=== PATIENT | female | born 1975 | race Caucasian/White ===

== ENCOUNTER 2019-11-01 05:04 | Inpatient (IN) | payer OTHER ==
[2019-11-01 05:15] VITALS: BMI 22.7
[2019-11-01] MEDS ORDERED: morphine CARPU-JECT 2 MG/1 ML DISP.SYRIN IVPUSH ONE (05:41)
[2019-11-01] MEDS ORDERED: SODIUM CHLORIDE 0.9% 500 ML INFUS.BAG IV ONE (05:42)
--- NOTE | 2019-11-01 05:42 | PDOC ---
Attending Attestation - Resident Resident Name: Elia Duarte - ED Attending Attestation I have performed the following: I have examined & evaluated the patient, The case was reviewed & discussed with the resident, I agree w/resident's findings & plan - HPI HPI: 11/01/19 06:54 Pt comes with abdominal pain pt is worried that "my appendix has ruptured." Patient reports waking up at 2: 05 AM in extreme pain. + diarrhea 3x yesterday. One episode of clear water NBNB spit up here in the department. Reports taking Motrin at 2:05 when she woke up and it did not help. - Physicial Exam PE: 11/06/19 06:44 Vitals reviewed, AFVSS GEN: Appears stated age, uncomfortable, writhing around in bed. AAOx3. HEENT: NCAT, EOMI, PERRL. Sclera anicteric, noninjected. No facial asymmetry. Moist mucous membranes. Normal voice. Trachea midline. CV: RRR, S1/S2, no murmurs / rubs / gallops appreciated. LUNG: CTAB, normal work of breathing. No wheezes, rales, rhonchi. No cough. Speaking full sentences. GI: Soft, TTP RLQ, non-distended, +BS, +guarding, no rebound. No masses. EXTREMITIES: 2+ distal pulses. No LE edema. No obvious deformities of all extremities. SKIN: Warm, dry, no rashes appreciated, non-jaundiced. PSYCH: In pain NEURO: CN grossly intact. Moving all extremities well. Normal strength and sensation grossly. - Medical Decision Making 11/06/19 06:44 Signed out to the day team
--- NOTE | 2019-11-01 05:42 | PDOC ---
History of Present Illness - General Chief Complaint: Pain, Acute Stated Complaint: ABDOMINAL PAIN Time Seen by Provider: 11/01/19 05:41 History Source: Patient Exam Limitations: No Limitations, Clinical Condition - History of Present Illness Initial Comments: 11/01/19 05:41 Source: Patient, writhing in pain HPI: 43yo F pmh MS, presenting with "my appendix has ruptured." Patient reports waking up at 2:05 AM in extreme 20/10 pain, she cannot describe it aside from "way worse than child ," states that she feels that her internal organs are being torn to shreds. She denies associated symptoms initially then endorses diarrhea 3x yesterday. One episode of clear water NBNB spit up here in the department. Reports taking Motrin at 2:05 when she woke up and it did not help. Denies any new or different foods. Endorses distention. Continued pain medication throughout encounter, s/p 2 mg morphine. Denies any illicit drug use. States that the pain radiates from her RLQ to her belly button. Prior abdominal surgery notable for , no other surgeries, still has GB and appendix. Levasy mildly off yesterday but no specific symptoms. All: Denies Meds: Per chart PMH: As above PSH: Per chart SHx: Denies Past History - Travel Traveled outside of the country in the last 30 days: No Close contact w/someone who was outside of country & ill: No - Past Medical History Allergies/Adverse Reactions: Allergies Allergy/AdvReac Type Severity Reaction Status Date / Time No Known Allergies Allergy Verified 11/01/19 12:55 Home Medications: Ambulatory Orders NK [No Known Home Medication] 09/23/16 Asthma: No Cardiac Disorders: No COPD: No Diabetes: No GI Disorders: No Disorders: No HTN: No Kidney Stones: No Seizures: No - Surgical History Abdominal Surgery: No Appendectomy: No Cardiac Surgery: No Cholecystectomy: No Lung Surgery: No Neurologic Surgery: No Orthopedic Surgery: No - Reproductive History PID: No - Psycho Social/Smoking Cessation Hx Smoking History: Never smoked Have you smoked in the past 12 months: No Number of Cigarettes Smoked Daily: 20 Information on smoking cessation initiated: No 'Breaking Loose' booklet given: 09/23/16 Hx Alcohol Use: No Drug/Substance Use Hx: No Hx Substance Use Treatment: No Review of Systems - Review of Systems Able to Perform ROS?: No (limited by condition) Is the patient limited Bur[place]ian proficient: Yes *Physical Exam - Vital Signs Last Vital Signs Temp Pulse Resp BP Pulse Ox 98.2 F 82 20 136/80 100 11/01/19 05:12 11/01/19 05:12 11/01/19 05:12 11/01/19 05:12 11/01/19 05:12 - Physical Exam 11/01/19 05:48 Vitals reviewed, AFVSS GEN: Appears stated age, uncomfortable, writhing around in bed. AAOx3. HEENT: NCAT, EOMI, PERRL. Sclera anicteric, noninjected. No facial asymmetry. Moist mucous membranes. Normal voice. Trachea midline. CV: RRR, S1/S2, no murmurs / rubs / gallops appreciated. LUNG: CTAB, normal work of breathing. No wheezes, rales, rhonchi. No cough. Speaking full sentences. GI: Soft, TTP RLQ, non-distended, +BS, +guarding, no rebound. No masses. EXTREMITIES: 2+ distal pulses. No LE edema. No obvious deformities of all extremities. SKIN: Warm, dry, no rashes appreciated, non-jaundiced. PSYCH: In pain NEURO: CN grossly intact. Moving all extremities well. Normal strength and sensation grossly. ED Treatment Course - LABORATORY CBC & Chemistry Diagram: 11/01/19 06:25 11/01/19 08:20 Medical Decision Making - Medical Decision Making 11/01/19 06:45 43yo F pmh MS presenting with "my appendix has ruptured." Abdomen diffusely TTP , non-peritoneal, vitals stable. DDX: Appendicitis, Torsion, TOA, Ectopic, UTI, Kidney Stone. - CBC, CMP, Lactate, Coags - UA, UCx - EKG - 2 mg Morphine - Zofran - 1 g Ofirmev - 1 L IVF - Discussed with day team Dr. Grier - ANGELICA with contrast Discharge - Discharge Information Problems reviewed: Yes Clinical Impression/Diagnosis: Appendicitis Qualifiers: Appendicitis type: acute appendicitis Acute appendicitis type: with localized peritonitis Appendicitis gangrene presence: without gangrene Appendicitis perforation presence: without perforation Appendicitis abscess presence: without abscess Qualified Code(s): K35.30 - Acute appendicitis with localized peritonitis, without perforation or gangrene Condition: Stable - Follow up/Referral - Patient Discharge Instructions - Post Discharge Activity
[2019-11-01] MEDS ORDERED: MORPHINE SULFATE 2 MG/ML VIAL ONE ×2 (05:47→09:50)
[2019-11-01] MEDS ORDERED: ONDANSETRON 4 MG/2 ML VIAL ONE ×2 (06:14→18:30)
[2019-11-01] MEDS ORDERED: ACETAMINOPHEN 1000 MG/100 ML VIAL (NON FORMULARY) IVPB ONE ×3 (06:31→19:00)
[2019-11-01] MEDS ORDERED: ACETAMINOPHEN INJECTION 100 ML IVPB ONE ×2 (06:34→19:11)
[2019-11-01 07:06] LABS: HEMATOCRIT 36.5 % (32.4-45.2); HEMOGLOBIN 12.2 GM/dL (10.7-15.3); MCHC 33.3 g/dl (32.0-36.0); MEAN PLT VOLUME 10.2 fl (7.5-11.1); PLATELET COUNT 258 K/MM3 (134-434); RBC 3.58 M/mm3 (3.60-5.2); RDW 15.3 % (11.6-15.6); WHITE BLOOD COUNT 3.2 K/mm3 (4.0-10.0)
[2019-11-01] MEDS ORDERED: morphine CARPU-JECT 4 MG/1 ML DISP.SYRIN IVPUSH ONE (07:53)
--- NOTE | 2019-11-01 09:31 | PDOC ---
*Physical Exam - Vital Signs Last Vital Signs Temp Pulse Resp BP Pulse Ox 98.2 F 82 20 136/80 100 11/01/19 05:12 11/01/19 05:12 11/01/19 05:12 11/01/19 05:12 11/01/19 05:12 ED Treatment Course - LABORATORY CBC & Chemistry Diagram: 11/01/19 06:25 11/01/19 08:20 - ADDITIONAL ORDERS Additional order review: Laboratory Results 11/01/19 06:25 Sodium Cancelled Potassium Cancelled Chloride Cancelled Carbon Dioxide Cancelled Anion Gap Cancelled BUN Cancelled Creatinine Cancelled Est GFR (CKD-EPI)AfAm Cancelled Est GFR (CKD-EPI)NonAf Cancelled Random Glucose Cancelled Calcium Cancelled Total Bilirubin Cancelled AST Cancelled ALT Cancelled Alkaline Phosphatase Cancelled Total Protein Cancelled Albumin Cancelled 11/01/19 06:25 RBC 3.58 L MCV 102.0 H MCHC 33.3 RDW 15.3 MPV 10.2 Neutrophils % No Result Required. Lymphocytes % No Result Required. - Medications Given in the ED: ED Medications Discontinued Medications Generic Name Dose Route Start Last Admin Trade Name Freq PRN Reason Stop Dose Admin Acetaminophen 1,000 mg 11/01/19 06:31 11/01/19 06:53 Ofirmev Injection - IVPB 11/01/19 06:32 1,000 mg ONCE ONE Administration Morphine Sulfate 2 mg 11/01/19 05:41 11/01/19 06:52 Morphine Injection - IVPUSH 11/01/19 05:42 2 mg ONCE ONE Administration Sodium Chloride 1,000 ml 11/01/19 05:42 11/01/19 06:52 Normal Saline - IV 11/01/19 05:43 1,000 ml ONCE ONE Administration Medical Decision Making - Medical Decision Making 11/01/19 09:31 Patient signed out to me with abdominal pain pending labs and CAT scan IV pain medication given CT demonstrates appendicitis IV antibiotics ordered IV fluids ordered patient made n.p.o. We will admit to Dr. Aguilar surgery for definitive management of appendicitis. Discharge - Discharge Information Problems reviewed: Yes Clinical Impression/Diagnosis: Appendicitis Qualifiers: Appendicitis type: acute appendicitis Acute appendicitis type: with localized peritonitis Appendicitis gangrene presence: without gangrene Appendicitis perforation presence: without perforation Appendicitis abscess presence: without abscess Qualified Code(s): K35.30 - Acute appendicitis with localized peritonitis, without perforation or gangrene Condition: Stable - Admission Yes - Follow up/Referral - Patient Discharge Instructions - Post Discharge Activity
--- NOTE | 2019-11-01 09:38 | PDOC ---
*Physical Exam - Vital Signs Last Vital Signs Temp Pulse Resp BP Pulse Ox 98.2 F 82 20 136/80 100 11/01/19 05:12 11/01/19 05:12 11/01/19 05:12 11/01/19 05:12 11/01/19 05:12 ED Treatment Course - LABORATORY CBC & Chemistry Diagram: 11/01/19 06:25 11/01/19 08:20 - ADDITIONAL ORDERS Additional order review: Laboratory Results 11/01/19 06:25 Sodium Cancelled Potassium Cancelled Chloride Cancelled Carbon Dioxide Cancelled Anion Gap Cancelled BUN Cancelled Creatinine Cancelled Est GFR (CKD-EPI)AfAm Cancelled Est GFR (CKD-EPI)NonAf Cancelled Random Glucose Cancelled Calcium Cancelled Total Bilirubin Cancelled AST Cancelled ALT Cancelled Alkaline Phosphatase Cancelled Total Protein Cancelled Albumin Cancelled 11/01/19 06:25 RBC 3.58 L MCV 102.0 H MCHC 33.3 RDW 15.3 MPV 10.2 Neutrophils % No Result Required. Lymphocytes % No Result Required. - RADIOLOGY Radiology Studies Ordered: Category Date Time Status ABDOMEN & PELVIS CT WITH CONTR [CT] Stat CT Scan 11/01/19 07:20 Ordered - Medications Given in the ED: ED Medications Discontinued Medications Generic Name Dose Route Start Last Admin Trade Name Freq PRN Reason Stop Dose Admin Acetaminophen 1,000 mg 11/01/19 06:31 11/01/19 06:53 Ofirmev Injection - IVPB 11/01/19 06:32 1,000 mg ONCE ONE Administration Morphine Sulfate 2 mg 11/01/19 05:41 11/01/19 06:52 Morphine Injection - IVPUSH 11/01/19 05:42 2 mg ONCE ONE Administration Sodium Chloride 1,000 ml 11/01/19 05:42 11/01/19 06:52 Normal Saline - IV 11/01/19 05:43 1,000 ml ONCE ONE Administration Medical Decision Making - Medical Decision Making 11/01/19 09:36 Signout from night team CT A/P showed acute appendicitis (thick walled tubular structure in RLQ w inflammatory changes, appendicolith, trace free fluid) without abscess, distended gallbladder, diffuse fatty liver, hepatomegaly WBC 3.2, K 3.3 --- 43yF w PMHx MS, polysubstance abuse (cocaine, ETOH) presenting with 1d RLQ ABD pain 2/2 acute appendicitis. Low concern for UTI (clean UA) vs kidney stone (no hematuria) vs (neg) vs pancreatitis. Hemodynamically stable Pt does not have any antibiotic allergies. Given 1L NS, 6 morphine, 1 dilaudid, cefoxitin, NS running wide open Consulted Dr Frank surgery - advised run IV fluids, NPO, will evaluate pt for surgery Admitted satellite Dr Frank for appendicitis Pt's sister took pt's identity during past hospital stay. Pt denies recent heroin, cocaine use. Last alcohol use last night. Last oral intake 2am this morning PCP Dr Heriberto Cottrell Discharge - Discharge Information Problems reviewed: Yes Clinical Impression/Diagnosis: Appendicitis Qualifiers: Appendicitis type: acute appendicitis Acute appendicitis type: with localized peritonitis Appendicitis gangrene presence: without gangrene Appendicitis perforation presence: without perforation Appendicitis abscess presence: without abscess Qualified Code(s): K35.30 - Acute appendicitis with localized peritonitis, without perforation or gangrene Condition: Stable - Follow up/Referral - Patient Discharge Instructions - Post Discharge Activity
[2019-11-01 09:44] LABS: URINE APPEARANCE Clear; URINE BILIRUBIN Negative (NEGATIVE); URINE COLOR Yellow; URINE GLUCOSE (UA) Negative (NEGATIVE); URINE KETONE Trace (NEGATIVE); URINE LEUK ESTERASE Negative (NEGATIVE); URINE NITRITE Negative (NEGATIVE); URINE PROTEIN Trace (NEGATIVE); URINE UROBILINOGEN 0.2 mg/dL (0.2-1.0)
[2019-11-01 09:59] LABS: INR 0.97 (0.83-1.09); PROTHROMBIN TIME (PATIENT) 11.4 SEC (9.7-13.0)
[2019-11-01 10:03] LABS: ALBUMIN 3.8 g/dl (3.4-5.0); BILIRUBIN,TOTAL 0.7 mg/dL (0.2-1); BLOOD UREA NITROGEN 12.4 mg/dL (7-18); CALCIUM 9.6 mg/dL (8.5-10.1); CREATININE 0.6 mg/dL (0.55-1.3); POTASSIUM 3.3 mmol/L (3.5-5.1); TOT PROT 6.9 g/dl (6.4-8.2)
[2019-11-01] MEDS ORDERED: CEFOXITIN SODIUM 2 GM in DEXTROSE 5%-WATER - 100 ML IVPB ONE (12:40)
[2019-11-01] MEDS ORDERED: HYDROmorphone HCL CARPU-JECT 2 MG/1 ML DISP.SYRIN IVPUSH ONE (12:49)
[2019-11-01] MEDS ORDERED: SODIUM CHLORIDE 0.9% 1000 ML INFUS.BAG IV ONE (13:03)
[2019-11-01] MEDS ORDERED: SODIUM CHLORIDE 1,000 ML IV SCH (13:30)
[2019-11-01] MEDS ORDERED: LIDOCAINE HCL/PF 2% SDV 5ML VIAL ONE (15:50)
[2019-11-01] MEDS ORDERED: LIDOCAINE HCL 2% JELLY (5 ML/TUBE) ONE (15:50)
[2019-11-01] MEDS ORDERED: GLYCOPYRROLATE 0.2 MG/1 ML VIAL ONE (15:50)
[2019-11-01] MEDS ORDERED: DEXAMETHASONE SOD PHOSPHATE 4 MG/1 ML VIAL ONE (15:50)
[2019-11-01] MEDS ORDERED: fentaNYL CITRATE 250 MCG/5 ML VIAL ONE (15:50)
[2019-11-01] MEDS ORDERED: NEOSTIGMINE METHYLSULFATE 0.5 MG/ML - 10 ML MDV ONE (15:50)
[2019-11-01] MEDS ORDERED: MIDAZOLAM HCL 2 MG/2 ML SINGLE DOSE VIAL ONE (15:51)
[2019-11-01 15:57] LABS: ANISOCYTOSIS 1+; MACROCYTOSIS 0; PLATELET ESTIMATE NORMAL
--- NOTE | 2019-11-01 16:37 | HP ---
Admitting History and Physical - Primary Care Physician PCP: Heriberto Cottrell - Admission Chief Complaint: RLQ pain, N/V, diarrhea History of Present Illness: 43yo F with multiple sclerosis, s/p c/s and TOPs, not on any routine home meds ( stopped MS med about a month ago on her own for n/v), presented to ER with RLQ pain beginning more vaguely last night (thought it might be gas or MS related), but woke her at 2am with severe pain, which then also radiated toward umbilicus , associated with N/V, diarrhea and subjective fever. She has felt a bit dizzy over the last couple days at times, and does have intermittent back/leg pain and weakness related to her MS, but does not use a cane. She tried taking ibuprofen, which did not help, and came to ER. Last po was last night, other than some ice chips in ER. In ER, she was afebrile, with wbc 3.2, left shifted/bandemia and with high eosinophils, and CT showed acute appendicitis with some free fluid but no discrete abscess. She was given pain meds, IV fluids and started on Cefoxitin in the ER. She was admitted satellite to surgery. She is seen and examined in OR holding - still feeling a lot of pain, having some difficulty with deep breathing secondary to it. She c/o dry mouth and difficulty voiding "like something is pressing on my bladder" as well. She does not and has not used cocaine or other illicit substances - her sister used her card last time she was at the hospital. Her sister was on suboxone - she has not taken it. She does not have known allergies to medications. She quit smoking 3 years ago, and drinks socially only. She was adopted and does not know her family history. 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 Psych: Yes: Anxiety Musculoskeletal: Yes: Chronic low back pain (and upper back pain from MS) - Past Surgical History Past Surgical History: Yes: Additional Past Surgical History: and terminations - Smoking History Smoking history: Former smoker (1ppd x 15 y) Have you smoked in the past 12 months: No If you are a former smoker, when did you quit?: 3 yrs ago - Alcohol/Substance Use Hx Alcohol Use: Yes (social) History of Substance Use: reports: None - Social History Usual Living Arrangement: Yes: With Spouse ADL: Independent Home Medications - Allergies Allergies/Adverse Reactions: Allergies Allergy/AdvReac Type Severity Reaction Status Date / Time No Known Allergies Allergy Verified 11/01/19 12:55 - Home Medications Home Medications: Ambulatory Orders NK [No Known Home Medication] 09/23/16 Family Medical History Family History: Unable to Obtain (pt was adopted - 16yo twins healthy) Review of Systems - Review of Systems Constitutional: reports: Fever (subjective). denies: Chills Eyes: denies: Blurred Vision, Recent Change in Vision HENT: denies: Difficult Swallowing, Throat Pain Neck: denies: Swollen Glands, Tenderness Cardiovascular: denies: Chest Pain, Palpitations Respiratory: denies: Cough, SOB Gastrointestinal: reports: Abdominal Pain (with hpi), Diarrhea, Nausea, Vomiting. denies: Constipation Genitourinary: denies: Burning, Dysuria Musculoskeletal: reports: Back Pain (with MS), Extremity Pain (legs, from MS). denies: Muscle Pain Integumentary: denies: Change in Color, Rash Neurological: reports: Dizziness (last few days), Unsteady Gait (at times, with MS, does not use aid). denies: Headache Psychiatric: reports: Anxiety. denies: Depression Physical Examination Vital Signs: Vital Signs Temperature 98.2 F 11/01/19 05:12 Pulse Rate 104 H 11/01/19 14:44 Respiratory Rate 18 11/01/19 14:44 Blood Pressure 113/71 11/01/19 14:44 O2 Sat by Pulse Oximetry (%) 99 11/01/19 14:44 Constitutional: Yes: Well Nourished, Calm, Moderate Distress Eyes: Yes: Conjunctiva Clear, EOM Intact HENT: Yes: Atraumatic, Normocephalic Neck: Yes: Supple, Trachea Midline Cardiovascular: Yes: Tachycardia. No: Pulse Irregular Respiratory: Yes: Regular, CTA Bilaterally, Other (difficulty with deep breathing secondary to pain) Gastrointestinal: Yes: Soft, Hypoactive Bowel Sounds, Tenderness (primarily RLQ , also RUQ, less on left side but referred to lower abd and RLQ as well), Tenderness, Rebound (present on right side with some guarding) ...Rectal Exam: Yes: Deferred Renal/: Yes: CVA Tenderness - Right. No: CVA Tenderness - Left Musculoskeletal: No: Joint Stiffness, Joint Swelling Extremities: No: Cool, Cyanosis Edema: No Peripheral Pulses WNL: Yes Integumentary: Yes: Tattoos. No: Jaundice, Rash Neurological: Yes: Alert, Oriented Psychiatric: Yes: Alert, Oriented Labs: CBC, BMP 11/01/19 06:25 11/01/19 08:20 CMP Sodium 140 mmol/L (136-145) 11/01/19 08:20 Potassium 3.3 mmol/L (3.5-5.1) L 11/01/19 08:20 Chloride 107 mmol/L (98-107) 11/01/19 08:20 Carbon Dioxide 23 mmol/L (21-32) 11/01/19 08:20 Anion Gap 10 MMOL/L (8-16) 11/01/19 08:20 BUN 12.4 mg/dL (7-18) 11/01/19 08:20 Creatinine 0.6 mg/dL (0.55-1.3) 11/01/19 08:20 Est GFR (CKD-EPI)AfAm 130.30 11/01/19 08:20 Est GFR (CKD-EPI)NonAf 112.42 11/01/19 08:20 Random Glucose 115 mg/dL (74-106) H 11/01/19 08:20 Lactic Acid 2.0 mmol/L (0.4-2.0) 11/01/19 08:20 Calcium 9.6 mg/dL (8.5-10.1) 11/01/19 08:20 Total Bilirubin 0.7 mg/dL (0.2-1) 11/01/19 08:20 AST 20 U/L (15-37) 11/01/19 08:20 ALT 33 U/L (13-61) 11/01/19 08:20 Alkaline Phosphatase 101 U/L (45-117) 11/01/19 08:20 Total Protein 6.9 g/dl (6.4-8.2) 11/01/19 08:20 Albumin 3.8 g/dl (3.4-5.0) 11/01/19 08:20 Lipase 36 U/L (73-393) L 11/01/19 08:20 INR, PTT INR 0.97 (0.83-1.09) 11/01/19 08:20 Urine Test Results Urine Color Yellow 11/01/19 08:20 Urine Appearance Clear 11/01/19 08:20 Urine pH 7.0 (5.0-8.0) 11/01/19 08:20 Ur Specific [place] 1.020 (1.010-1.035) 11/01/19 08:20 Urine Protein Trace (NEGATIVE) 11/01/19 08:20 Urine Glucose (UA) Negative (NEGATIVE) 11/01/19 08:20 Urine Ketones Trace (NEGATIVE) 11/01/19 08:20 Urine Blood Negative (NEGATIVE) 11/01/19 08:20 Urine Nitrite Negative (NEGATIVE) 11/01/19 08:20 Urine Bilirubin Negative (NEGATIVE) 11/01/19 08:20 Ur Leukocyte Esterase Negative (NEGATIVE) 11/01/19 08:20 Imaging - Results Cat Scan: Report Reviewed, Image Reviewed (appendix retrocecal, inflamed/ enlarged with appendicoliths at base; some fluid but no discrete abscess) Problem List - Problems (1) Acute appendicitis with generalized peritonitis, without gangrene or abscess Assessment/Plan: admit 23H/satellite to surgery NPO until postop periop antibiotics DVT prophylaxis pain meds prn - nonnarcotics first line Discussed with patient risks, benefits and alternatives of laparoscopic possible open appendectomy, including but not limited to bleeding, infection, injury to adjacent structures, intestinal leak or injury, intraabdominal abscess , incisional hernia, need for further procedures, ; alternatives include antibiotics, delayed or no surgery - risks of this include failure of nonoperative therapy, perforation, sepsis, recurrence, . Patient desires to proceed with operation - will take to OR now for above. Informed consent signed for same. Code(s): K35.20 - ACUTE APPENDICITIS WITH GEN PERITONITIS, WITHOUT ABSCESS Qualifiers: Appendicitis perforation presence: unspecified whether perforation present Qualified Code(s): K35.20 - Acute appendicitis with generalized peritonitis, without abscess (2) RLQ abdominal pain Code(s): R10.31 - RIGHT LOWER QUADRANT PAIN (3) Nausea & vomiting Code(s): R11.2 - NAUSEA WITH VOMITING, UNSPECIFIED Qualifiers: Vomiting type: unspecified Vomiting Intractability: non-intractable Qualified Code(s): R11.2 - Nausea with vomiting, unspecified (4) Multiple sclerosis Assessment/Plan: Dr. Brown Cadet is her neurologist. He will see her in the office in followup. Code(s): G35 - MULTIPLE SCLEROSIS
[2019-11-01] MEDS ORDERED: EPHEDRINE SULFATE/0.9% NACL/PF 50 MG/10 ML SYRINGE NR ONE (16:45)
[2019-11-01] MEDS ORDERED: cefOXitin SODIUM 1 GM VIAL (RESTRICTED TO ID) IVPB ONE ×2 (17:06→17:07)
[2019-11-01] MEDS ORDERED: BUPIVACAINE HCL/PF 0.5% (5MG/ML) 10 ML VIAL NR ONE (17:07)
[2019-11-01] MEDS ORDERED: ONDANSETRON 4 MG/2 ML VIAL IVPUSH PRN ×2 (17:11→18:32)
[2019-11-01] MEDS ORDERED: cefOXitin SODIUM 2 GM/50 PREMIX IN DEXTROSE (RESTRICTED TO ID) IVPB ONE (17:15)
[2019-11-01] MEDS ORDERED: LACTATED RINGERS SOLUTION 1,000 ML IV SCH (17:15)
[2019-11-01] MEDS ORDERED: BENZOIN/ALOE VERA/STORAX/TOLU 58 ML BOTTLE ONE (18:03)
[2019-11-01] MEDS ORDERED: HYDROmorphone HCl 2 MG/ML VIAL ONE (18:03)
[2019-11-01] MEDS ORDERED: ONDANSETRON *ODT* 4 MG TABLET ONE (18:29)
[2019-11-01] MEDS ORDERED: PIPERACILLIN/TAZOBACTAM 4.5 GM VIAL IVPB ONE (19:00)
--- NOTE | 2019-11-01 19:01 | OP ---
Operative Note - Note: Operative Date: 11/01/19 Pre-Operative Diagnosis: acute appendicitis with generalized peritonitis Operation: laparoscopic appendectomy Findings: purulent fluid in pelvis and RLQ suctioned; inflamed retrocecal appendix with necrotic/perforated spot at base, appendicoliths retrieved Post-Operative Diagnosis: Other (perforated appendicitis) Surgeon: Jose Raul Frank Anesthesiologist/AGRICULTURAL LABOR CAMP MANAGER: Nataliia De La Vega (w/Ebonie) Anesthesia: General, Local (20ml 0.5% marcaine) Specimens Removed: appendix to pathology Estimated Blood Loss (mls): 10 Drains & Tubes with Location: Be out at end of case Drains, Volume Out (mls): 400 Fluid Volume Replaced (mls): 1,400 (crystalloid) Operative Report Dictated: Yes
[2019-11-01] MEDS: PIPERACILLIN/TAZOB 4.5 GM 4.5 GM in DEXTROSE 5%-WATER 100 ML IVPB SCH (20:35)
[2019-11-01] MEDS: LACTATED RINGERS SOLUTION 1,000 ML IV SCH (20:35)
[2019-11-01] MEDS: IBUPROFEN 600 MG TABLET (FP) PO SCH (22:14)
[2019-11-01] MEDS ORDERED: oxyCODONE HCL 5 MG TABLET PO ONE (23:45)
[2019-11-02] MEDS: ACETAMINOPHEN 325 MG TABLET (FP) PO SCH ×5 (00:05→23:28)
[2019-11-02] MEDS ORDERED: PIPERACILLIN/TAZOBACTAM 4.5 GM VIAL IVPB ONE ×2 (00:15→08:40)
[2019-11-02] MEDS ORDERED: DEXTROSE 5%-WATER 100 ML IVPB ONE ×2 (00:15→08:40)
[2019-11-02] MEDS: PIPERACILLIN/TAZOB 4.5 GM 4.5 GM in DEXTROSE 5%-WATER 100 ML IVPB SCH ×3 (02:15→13:24)
[2019-11-02] MEDS: IBUPROFEN 600 MG TABLET (FP) PO SCH ×4 (02:15→20:59)
[2019-11-02 07:05] LABS: HEMATOCRIT 29.9 % (32.4-45.2); HEMOGLOBIN 9.9 GM/dL (10.7-15.3); LYMPH % 8.2 % (8-40); MCH 33.6 pg (25.7-33.7); MEAN CELL VOLUME 101.8 fl (80-96); MEAN PLT VOLUME 10.3 fl (7.5-11.1); MONO % 3.2 % (3.8-10.2); NEUT % 88.6 % (42.8-82.8); PLATELET COUNT 200 K/MM3 (134-434); RBC 2.94 M/mm3 (3.60-5.2); RDW 14.3 % (11.6-15.6); WHITE BLOOD COUNT 8.7 K/mm3 (4.0-10.0)
[2019-11-02 07:28] LABS: BLOOD UREA NITROGEN 9.3 mg/dL (7-18); CREATININE 0.5 mg/dL (0.55-1.3); MAGNESIUM 1.5 mg/dL (1.8-2.4); POTASSIUM 3.3 mmol/L (3.5-5.1)
[2019-11-02] MEDS: LACTATED RINGERS SOLUTION 1,000 ML IV SCH (09:02)
[2019-11-02] MEDS ORDERED: LACTOBACILLUS ACIDOPHILUS 1 TABLET PO SCH (10:00)
--- NOTE | 2019-11-02 12:50 | PN ---
Progress Note (short form) - Note Progress Note: 43F s/p lap appendectomy under GA. Vital Signs Temp 98.5 F 11/02/19 10:00 Pulse 82 11/02/19 10:00 Resp 20 11/02/19 10:00 BP 108/59 L 11/02/19 10:00 Pulse Ox 95 11/02/19 10:00 Intake & Output 11/01/19 11/02/19 11/02/19 23:59 11:59 23:59 Intake Total 4400 1500 Output Total 10 Balance 4390 1500 Intake: IV 3800 1000 Lactated Ringers Solution 1000 1,000 ml @ 125 mls/hr IV [facility] Rx#: [id number] NORMAL SALINE 2000 IVPB 100 Oral 500 500 Output: Urine 0 Estimated Blood Loss 10 Other: Voiding Method Toilet Toilet Height 5 ft 7 in CBC, BMP 11/02/19 06:15 11/02/19 06:15 - No anesthesia complications
--- NOTE | 2019-11-02 13:09 | CON.ID ---
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 ...: No Psych: Yes: Anxiety Musculoskeletal: Yes: Chronic low back pain (and upper back pain from MS) - Past Surgical History Past Surgical History: Yes: - Alcohol/Substance Use Hx Alcohol Use: No History of Substance Use: reports: None - Smoking History Smoking history: Former smoker Have you smoked in the past 12 months: No Aproximately how many cigarettes per day: 20 If you are a former smoker, when did you quit?: 1 year ago - Social History ADL: Independent Home Medications - Allergies Allergies/Adverse Reactions: Allergies Allergy/AdvReac Type Severity Reaction Status Date / Time No Known Allergies Allergy Verified 11/01/19 12:55 - Home Medications Home Medications: Ambulatory Orders NK [No Known Home Medication] 09/23/16 Physical Exam Vital Signs: Vital Signs Temperature 98.5 F 11/02/19 10:00 Pulse Rate 82 11/02/19 10:00 Respiratory Rate 20 11/02/19 10:00 Blood Pressure 108/59 L 11/02/19 10:00 O2 Sat by Pulse Oximetry (%) 95 11/02/19 10:00 Labs: CBC, BMP 11/02/19 06:15 11/02/19 06:15
--- NOTE | 2019-11-02 13:40 | PN ---
Progress Note, Physician Chief Complaint: RLQ pain History of Present Illness: Pt s/p lap appy with findings of perforated appendicitis. Seen and examined in bed. C/O pain, back from MS and abdomen from surgery. Belly is distended, denies flatus or BM yet. Tolerating liquids, started on food today, but eating lightly only. Umbilical site hurts the most. Taking tylenol and ibuprofen, still having too much pain to walk around much. Also hurts to cough, hard to breathe while lying down, because "it feels like all my organs are pushing up against my chest." No fevers. Having heartburn, was taking Rolaids from home. - Current Medication List Current Medications: Active Medications Acetaminophen (Tylenol -) 650 mg PO Q6H [facility] Last Admin: 11/02/19 11:41 Dose: 650 mg Piperacillin Sod/Tazobactam (Sod 3.375 gm/ Dextrose) 50 mls @ 100 mls/hr IVPB Q8H-IV IVA; Protocol Ibuprofen (Motrin -) 600 mg PO Q6H IVA Last Admin: 11/02/19 09:01 Dose: 600 mg Lactobacillus Acidophilus (Bacid -) 1 tab PO DAILY IVA Last Admin: 11/02/19 09:01 Dose: 1 tab Ondansetron HCl (Zofran Injection) 4 mg IVPUSH Q4H PRN PRN Reason: NAUSEA Last Admin: 11/01/19 20:45 Dose: 4 mg Oxycodone HCl (Roxicodone -) 10 mg PO Q6H PRN PRN Reason: Pain Level 7 - 10 BREAKTHROUGH - Objective Vital Signs: Vital Signs Temperature 98.5 F 11/02/19 10:00 Pulse Rate 82 11/02/19 10:00 Respiratory Rate 20 11/02/19 10:00 Blood Pressure 108/59 L 11/02/19 10:00 O2 Sat by Pulse Oximetry (%) 95 11/02/19 10:00 Constitutional: Yes: Well Nourished, No Distress, Anxious Eyes: Yes: Conjunctiva Clear, EOM Intact HENT: Yes: Atraumatic, Normocephalic Cardiovascular: Yes: Tachycardia (mild). No: Pulse Irregular Respiratory: Yes: Regular, CTA Bilaterally Gastrointestinal: Yes: Soft, Distention, Tenderness (central/periumbilical incisional mostly, also RUQ, less RLQ, minimal on left side). No: Tenderness, Rebound Musculoskeletal: Yes: Back Pain (subjective) Extremities: No: Cool, Cyanosis Integumentary: Yes: Incision (x3 dressed), Tattoos. No: Jaundice, Rash Wound/Incision: Yes: Dressing Dry and Intact (x3). No: Dressing Removed Neurological: Yes: Alert, Oriented Labs: CBC, BMP 11/02/19 06:15 11/02/19 06:15 Mg 1.5 Problem List - Problems (1) Acute appendicitis with generalized peritonitis, without gangrene or abscess Assessment/Plan: POD1 s/p laparoscopic appendectomy with findings of perforation/necrosis at appendiceal base continue antibiotics per ID for perforated appendicitis DVT prophylaxis - SCD's/ambulation pain meds - nonnarcotics first line scheduled, will allow prn oxycodone tolerating some po, not eating full meals yet abdominal distention - no flatus yet, encourage ambulation in halls will start stool softener H2B now, PPI daily instead of Rolaids getting IS - encourage use, sitting up no fevers, wbc as expected pain control not optimal, will continue IV antibiotics today for perforation/ peritonitis abd quite distended will keep as inpatient - convert from satellite to full admission replete lytes, check labs in am Code(s): K35.20 - ACUTE APPENDICITIS WITH GEN PERITONITIS, WITHOUT ABSCESS Qualifiers: Appendicitis perforation presence: unspecified whether perforation present Qualified Code(s): K35.20 - Acute appendicitis with generalized peritonitis, without abscess (2) RLQ abdominal pain Assessment/Plan: improved - now more incisional Code(s): R10.31 - RIGHT LOWER QUADRANT PAIN (3) Nausea & vomiting Assessment/Plan: no vomiting, nausea better Code(s): R11.2 - NAUSEA WITH VOMITING, UNSPECIFIED Qualifiers: Vomiting type: unspecified Vomiting Intractability: non-intractable Qualified Code(s): R11.2 - Nausea with vomiting, unspecified (4) Multiple sclerosis Assessment/Plan: takes oxycodone prn for pain at home see above f/u with Dr. Cadet as outpt Code(s): G35 - MULTIPLE SCLEROSIS
[2019-11-02] MEDS: oxyCODONE HCL 5 MG TABLET PO PRN ×2 (14:57→20:59)
[2019-11-02] MEDS ORDERED: FAMOTIDINE 20 MG TABLET PO ONE (16:26)
[2019-11-02] MEDS ORDERED: ONDANSETRON 4 MG/2 ML VIAL IVPUSH PRN (16:28)
[2019-11-02] MEDS ORDERED: MAGNESIUM OXIDE 400 MG TABLET (FP) PO ONE (16:31)
[2019-11-02] MEDS ORDERED: PIPERACILLIN/TAZOBACTAM 3.375 GM VIAL IVPB ONE (16:48)
[2019-11-02] MEDS ORDERED: DEXTROSE 5%-WATER - 50 ML IVPB ONE (16:48)
[2019-11-02] MEDS: POTASSIUM CHLORIDE TABS 20 MEQ TABLET.ER (FP) PO SCH ×3 (17:01→20:58)
[2019-11-02] MEDS: PIPERACILLIN/TAZOB 3.375 GM 3.375 GM in DEXTROSE 5%-WATER - 50 ML IVPB SCH (17:02)
[2019-11-02] MEDS ORDERED: ACETAMINOPHEN 325 MG TABLET (FP) PO SCH (18:00)
[2019-11-02] MEDS: DOCUSATE SODIUM 100 MG CAPSULE (FP) PO SCH (20:59)
[2019-11-02] MEDS ORDERED: IBUPROFEN 600 MG TABLET (FP) PO SCH (21:00)
[2019-11-02] MEDS: METOCLOPRAMIDE HCL INJECTION 10 MG/2 ML VIAL IVPUSH SCH (23:28)
[2019-11-03] MEDS ORDERED: PIPERACILLIN/TAZOBACTAM 3.375 GM VIAL IVPB ONE ×3 (01:22→17:56)
[2019-11-03] MEDS ORDERED: DEXTROSE 5%-WATER - 50 ML IVPB ONE ×3 (01:23→17:56)
[2019-11-03] MEDS: IBUPROFEN 600 MG TABLET (FP) PO SCH ×4 (02:51→21:11)
[2019-11-03] MEDS: oxyCODONE HCL 5 MG TABLET PO PRN ×4 (02:51→21:11)
[2019-11-03] MEDS: PIPERACILLIN/TAZOB 3.375 GM 3.375 GM in DEXTROSE 5%-WATER - 50 ML IVPB SCH ×3 (02:52→18:02)
[2019-11-03] MEDS: METOCLOPRAMIDE HCL INJECTION 10 MG/2 ML VIAL IVPUSH SCH ×4 (02:52→21:10)
[2019-11-03] MEDS: ACETAMINOPHEN 325 MG TABLET (FP) PO SCH ×3 (05:46→18:03)
[2019-11-03 07:31] LABS: BASO % 0.4 % (0-2.0); EOS % 0.8 % (0-4.5); HEMATOCRIT 31.1 % (32.4-45.2); HEMOGLOBIN 10.5 GM/dL (10.7-15.3); LYMPH % 11.4 % (8-40); MCH 34.6 pg (25.7-33.7); MCHC 33.7 g/dl (32.0-36.0); MEAN CELL VOLUME 102.7 fl (80-96); MEAN PLT VOLUME 10.1 fl (7.5-11.1); MONO % 1.9 % (3.8-10.2); NEUT % 85.5 % (42.8-82.8); PLATELET COUNT 250 K/MM3 (134-434); RBC 3.02 M/mm3 (3.60-5.2); RDW 14.1 % (11.6-15.6); WHITE BLOOD COUNT 7.9 K/mm3 (4.0-10.0)
[2019-11-03 07:56] LABS: BLOOD UREA NITROGEN 9.8 mg/dL (7-18); CALCIUM 8.5 mg/dL (8.5-10.1); CREATININE 0.5 mg/dL (0.55-1.3); POTASSIUM 3.8 mmol/L (3.5-5.1)
--- NOTE | 2019-11-03 09:42 | PN ---
Progress Note, Physician History of Present Illness: stable still with pain clinically looks stable - Current Medication List Current Medications: Active Medications Acetaminophen (Tylenol -) 650 mg PO Q6HPO IVA Last Admin: 11/03/19 05:46 Dose: 650 mg Docusate Sodium (Colace -) 300 mg PO HS IVA Last Admin: 11/02/19 20:59 Dose: 300 mg Piperacillin Sod/Tazobactam (Sod 3.375 gm/ Dextrose) 50 mls @ 100 mls/hr IVPB Q8H-IV IVA; Protocol Last Admin: 11/03/19 02:52 Dose: 100 mls/hr Ibuprofen (Motrin -) 600 mg PO Q6H IVA Last Admin: 11/03/19 02:51 Dose: 600 mg Lactobacillus Acidophilus (Bacid -) 1 tab PO DAILY IVA Metoclopramide HCl (Reglan Injection -) 10 mg IVPUSH Q6H-IV IVA Last Admin: 11/03/19 02:52 Dose: 10 mg Oxycodone HCl (Roxicodone -) 10 mg PO Q6H PRN PRN Reason: Pain Level 7 - 10 BREAKTHROUGH Last Admin: 11/03/19 02:51 Dose: 10 mg Pantoprazole Sodium (Protonix -) 40 mg PO DAILY ON LICENSE OF [facility] - Objective Vital Signs: Vital Signs Temperature 97.9 F 11/03/19 08:30 Pulse Rate 93 H 11/03/19 08:30 Respiratory Rate 18 11/03/19 08:30 Blood Pressure 104/55 L 11/03/19 08:30 O2 Sat by Pulse Oximetry (%) 96 11/03/19 08:30 Constitutional: Yes: Calm, Mild Distress Cardiovascular: Yes: S1, S2 Respiratory: Yes: Regular, CTA Bilaterally Gastrointestinal: Yes: Normal Bowel Sounds, Soft Musculoskeletal: Yes: WNL Extremities: Yes: Other Neurological: Yes: Alert, Oriented Psychiatric: Yes: Alert, Oriented Labs: CBC, BMP 11/03/19 07:06 11/03/19 07:06 INR, PTT INR 0.97 (0.83-1.09) 11/01/19 08:20 Assessment/Plan Problem List - Problems (1) Acute appendicitis with generalized peritonitis, without gangrene or abscess Code(s): K35.20 - ACUTE APPENDICITIS WITH GEN PERITONITIS, WITHOUT ABSCESS Qualifiers: Appendicitis perforation presence: unspecified whether perforation present Qualified Code(s): K35.20 - Acute appendicitis with generalized peritonitis, without abscess (2) RLQ abdominal pain Code(s): R10.31 - RIGHT LOWER QUADRANT PAIN (3) Nausea & vomiting Code(s): R11.2 - NAUSEA WITH VOMITING, UNSPECIFIED Qualifiers: Vomiting type: unspecified Vomiting Intractability: non-intractable Qualified Code(s): R11.2 - Nausea with vomiting, unspecified (4) Multiple sclerosis Code(s): G35 - MULTIPLE SCLEROSIS uti plan on discharge can switch to augmentin for another 5 more days rest as per the surgical team
--- NOTE | 2019-11-03 09:48 | PN ---
Progress Note, Physician Chief Complaint: RLQ pain History of Present Illness: Pt s/p lap appy with findings of perforated appendicitis. Seen and examined in bed. C/O pain, back from MS and abdomen from surgery. Belly is distended, denies flatus or BM yet. Taking tylenol and ibuprofen, also prn oxycodone (as at home). No fevers. Eating a little, not full meals yet. Ambulating some, but not frequently. - Current Medication List Current Medications: Active Medications Acetaminophen (Tylenol -) 650 mg PO Q6HPO [facility] Last Admin: 11/03/19 05:46 Dose: 650 mg Docusate Sodium (Colace -) 300 mg PO HS IVA Last Admin: 11/02/19 20:59 Dose: 300 mg Piperacillin Sod/Tazobactam (Sod 3.375 gm/ Dextrose) 50 mls @ 100 mls/hr IVPB Q8H-IV IVA; Protocol Last Admin: 11/03/19 02:52 Dose: 100 mls/hr Ibuprofen (Motrin -) 600 mg PO Q6H IVA Last Admin: 11/03/19 02:51 Dose: 600 mg Lactobacillus Acidophilus (Bacid -) 1 tab PO DAILY [facility] Metoclopramide HCl (Reglan Injection -) 10 mg IVPUSH Q6H-IV IVA Last Admin: 11/03/19 02:52 Dose: 10 mg Oxycodone HCl (Roxicodone -) 10 mg PO Q6H PRN PRN Reason: Pain Level 7 - 10 BREAKTHROUGH Last Admin: 11/03/19 02:51 Dose: 10 mg Pantoprazole Sodium (Protonix -) 40 mg PO DAILY [facility] - Objective Vital Signs: Vital Signs Temperature 97.9 F 11/03/19 08:30 Pulse Rate 93 H 11/03/19 08:30 Respiratory Rate 18 11/03/19 08:30 Blood Pressure 104/55 L 11/03/19 08:30 O2 Sat by Pulse Oximetry (%) 96 11/03/19 08:30 Constitutional: Yes: Well Nourished, No Distress, Calm Eyes: Yes: Conjunctiva Clear, EOM Intact HENT: Yes: Atraumatic, Normocephalic Cardiovascular: Yes: Regular Rate and Rhythm, Tachycardia (mild) Respiratory: Yes: Regular, CTA Bilaterally Gastrointestinal: Yes: Normal Bowel Sounds, Soft, Distention (with tympany), Tenderness (RLQ/RUQ > left side, lower more than upper, no rebound; umbilical incisional tenderness) Extremities: No: Cool, Cyanosis Integumentary: Yes: Incision (x3 dressed). No: Jaundice, Rash Wound/Incision: Yes: Steri Strips (c/d/i), Dressing Dry and Intact (x3), Dressing Removed (x3) Neurological: Yes: Alert, Oriented Labs: CBC, BMP 11/03/19 07:06 11/03/19 07:06 Mag 2.0 lytes repleted - ....Imaging X-ray: Report Reviewed, Image Reviewed (AXR with gas in distal small bowel and colon, air-fluid levels, bubble in stomach - likely still with some ileus) Problem List - Problems (1) Acute appendicitis with generalized peritonitis, without gangrene or abscess Assessment/Plan: POD2 s/p laparoscopic appendectomy with findings of perforation/necrosis at appendiceal base continue antibiotics per ID for perforated appendicitis DVT prophylaxis - SCD's/ambulation pain meds - nonnarcotics first line scheduled, prn oxycodone tolerating some po, not eating full meals yet abdominal distention - no flatus yet, encourage ambulation in halls stool softener GI prophylaxis lytes ok today Code(s): K35.20 - ACUTE APPENDICITIS WITH GEN PERITONITIS, WITHOUT ABSCESS Qualifiers: Appendicitis perforation presence: unspecified whether perforation present Qualified Code(s): K35.20 - Acute appendicitis with generalized peritonitis, without abscess (2) RLQ abdominal pain Assessment/Plan: improved - now more incisional Code(s): R10.31 - RIGHT LOWER QUADRANT PAIN (3) Multiple sclerosis Assessment/Plan: takes oxycodone prn for pain at home see above f/u with Dr. Cadet as outpt Code(s): G35 - MULTIPLE SCLEROSIS
[2019-11-03] MEDS: PANTOPRAZOLE 40 MG TABLET PO SCH (09:51)
[2019-11-03] MEDS: LACTOBACILLUS ACIDOPHILUS 1 TABLET PO SCH (09:51)
[2019-11-03] MEDS ORDERED: LACTOBACILLUS ACIDOPHILUS 1 TABLET PO SCH (10:00)
--- NOTE | 2019-11-03 19:46 | PATH ---
Surgical Pathology Report Patient Name: JAMEE PAK Med. Rec. #: [id number] /Age/Gender: 1975 (Age: 43) / F Account: [id number] Location: [facility] MED/SURG Taken: 11/01/2019 Received: 11/02/2019 Reported: 11/03/2019 Physicians: Jose Raul Frank M.D. Specimen(s) Received APPENDIX Clinical History Appendicitis and peritonitis Final Diagnosis APPENDIX, APPENDECTOMY: ACUTE APPENDICITIS AND PERIAPPENDICITIS. Electronically Signed Jatin Pagan M.D. Gross Description Specimen is received in formalin, labeled "appendix", and consists of an appendix, measuring 6cm in length and 0.9cm in average diameter. The serosal (external) surface of the appendix is dull and covered by purulent material. On opening the appendix contains purulent material. The mucosal surface is red-brown and ulcerated. Elevator Service Mechanic sections are submitted in one cassette. JAKE/11/02/2019 will/11/02/2019
[2019-11-03] MEDS: DOCUSATE SODIUM 100 MG CAPSULE (FP) PO SCH (21:10)
[2019-11-04] MEDS ORDERED: PIPERACILLIN/TAZOBACTAM 3.375 GM VIAL IVPB ONE (01:19)
[2019-11-04] MEDS ORDERED: DEXTROSE 5%-WATER - 50 ML IVPB ONE (01:19)
[2019-11-04] MEDS: ACETAMINOPHEN 325 MG TABLET (FP) PO SCH ×3 (01:21→13:08)
[2019-11-04] MEDS: PIPERACILLIN/TAZOB 3.375 GM 3.375 GM in DEXTROSE 5%-WATER - 50 ML IVPB SCH ×2 (02:44→09:56)
[2019-11-04] MEDS: METOCLOPRAMIDE HCL INJECTION 10 MG/2 ML VIAL IVPUSH SCH ×3 (02:45→09:29)
[2019-11-04] MEDS: IBUPROFEN 600 MG TABLET (FP) PO SCH ×3 (02:45→14:25)
[2019-11-04] MEDS: oxyCODONE HCL 5 MG TABLET PO PRN ×2 (02:45→09:24)
[2019-11-04 06:38] VITALS: PULSE 85
[2019-11-04 08:32] VITALS: BP 123/73; TEMP 98.6
[2019-11-04] MEDS: PANTOPRAZOLE 40 MG TABLET PO SCH (09:24)
[2019-11-04] MEDS: LACTOBACILLUS ACIDOPHILUS 1 TABLET PO SCH (09:24)
--- NOTE | 2019-11-04 11:59 | PN ---
Progress Note, Physician History of Present Illness: feeling better says starting to pass flatus - Current Medication List Current Medications: Active Medications Acetaminophen (Tylenol -) 650 mg PO Q6HPO [facility] Last Admin: 11/04/19 05:49 Dose: 650 mg Amoxicillin/Clavulanate Potassium (Augmentin - 875mg Tablet) 1 tab PO BIDWM [facility] Docusate Sodium (Colace -) 300 mg PO HS [facility] Last Admin: 11/03/19 21:10 Dose: 300 mg Piperacillin Sod/Tazobactam (Sod 3.375 gm/ Dextrose) 50 mls @ 100 mls/hr IVPB Q8H-IV IVA; Protocol Last Admin: 11/04/19 09:56 Dose: Not Given Ibuprofen (Motrin -) 600 mg PO Q6H [facility] Last Admin: 11/04/19 09:23 Dose: 600 mg Lactobacillus Acidophilus (Bacid -) 1 tab PO DAILY [facility] Last Admin: 11/04/19 09:24 Dose: 1 tab Metoclopramide HCl (Reglan Injection -) 10 mg IVPUSH Q6H-IV IVA Last Admin: 11/04/19 09:29 Dose: Not Given Oxycodone HCl (Roxicodone -) 10 mg PO Q6H PRN PRN Reason: Pain Level 7 - 10 BREAKTHROUGH Last Admin: 11/04/19 09:24 Dose: 10 mg Pantoprazole Sodium (Protonix -) 40 mg PO DAILY [facility] Last Admin: 11/04/19 09:24 Dose: 40 mg - Objective Vital Signs: Vital Signs Temperature 98.6 F 11/04/19 08:31 Pulse Rate 85 11/04/19 08:31 Respiratory Rate 18 11/04/19 08:35 Blood Pressure 123/73 11/04/19 08:31 O2 Sat by Pulse Oximetry (%) 96 11/04/19 08:35 Constitutional: Yes: No Distress, Calm Cardiovascular: Yes: S1, S2 Respiratory: Yes: Regular, CTA Bilaterally Gastrointestinal: Yes: Soft, Hypoactive Bowel Sounds Musculoskeletal: Yes: WNL Extremities: Yes: WNL Wound/Incision: Yes: Dressing Dry and Intact Neurological: Yes: Alert, Oriented Psychiatric: Yes: Alert, Oriented Labs: CBC, BMP 11/03/19 07:06 11/03/19 07:06 INR, PTT INR 0.97 (0.83-1.09) 11/01/19 08:20 Assessment/Plan Problem List - Problems (1) Acute appendicitis with generalized peritonitis, without gangrene or abscess Code(s): K35.20 - ACUTE APPENDICITIS WITH GEN PERITONITIS, WITHOUT ABSCESS Qualifiers: Appendicitis perforation presence: unspecified whether perforation present Qualified Code(s): K35.20 - Acute appendicitis with generalized peritonitis, without abscess (2) RLQ abdominal pain Code(s): R10.31 - RIGHT LOWER QUADRANT PAIN (3) Nausea & vomiting Code(s): R11.2 - NAUSEA WITH VOMITING, UNSPECIFIED Qualifiers: Vomiting type: unspecified Vomiting Intractability: non-intractable Qualified Code(s): R11.2 - Nausea with vomiting, unspecified (4) Multiple sclerosis Code(s): G35 - MULTIPLE SCLEROSIS uti plan can be switched to augmentin rest as per surgery
--- NOTE | 2019-11-04 14:34 | DS ---
Physical Examination Vital Signs: Vital Signs Temperature 98.6 F 11/04/19 08:31 Pulse Rate 85 11/04/19 08:31 Respiratory Rate 18 11/04/19 08:35 Blood Pressure 123/73 11/04/19 08:31 O2 Sat by Pulse Oximetry (%) 96 11/04/19 08:35 Constitutional: Yes: Well Nourished, No Distress, Calm Eyes: Yes: Conjunctiva Clear, EOM Intact HENT: Yes: Atraumatic, Normocephalic Cardiovascular: Yes: Regular Rate and Rhythm, Tachycardia (mild) Respiratory: Yes: Regular, CTA Bilaterally Gastrointestinal: Yes: Soft, Distention (less than yesterday), Hypoactive Bowel Sounds Extremities: No: Cool, Cyanosis Integumentary: Yes: Incision (x3 w/steris). No: Jaundice, Rash Wound/Incision: Yes: Steri Strips (c/d/i x3) Neurological: Yes: Alert, Oriented. No: Unsteady Gait Psychiatric: Yes: Alert, Oriented Labs: no new labs Microbiology 11/01/19 08:20 Urine Culture - Final Urine - Urine Clean Catch Enterococcus Faecalis Discharge Summary Problems reviewed: Yes Reason For Visit: APPENDICITIS Current Active Problems Acute appendicitis with perforation and generalized peritonitis, without gangrene or abscess (Acute) Multiple sclerosis (Acute) Nausea & vomiting (Acute) RLQ abdominal pain (Acute) Procedures: Principal: laparoscopic appendectomy Hospital Course: 43yo F with MS and chronic pain treated with opiates presented with RLQ pain, N/ V and was found to have acute appendicitis. She had laparoscopic appendectomy with findings of purulent fluid in pelvis and likely perforation at appendiceal base with appendicoliths retrieved. She received IV fluids and antibiotics ( Zosyn IV -> Augmentin day of discharge). Pain was managed with alternating tylenol and ibuprofen, with oxycodone 10mg q6H prn for more severe pain. Postoperatively, bowel function was slow to return, and she had abdominal distention that improved some when she started passing flatus and having BMs. She is now tolerating diet, ambulating, and voiding well. Pain control is appropriate. Incisions with steristrips are clean, dry and intact. She is discharged home with lifting restrictions, to f/u in 3 weeks with surgery. She is to see her PMD, pain management doctor and neurologist in followup very soon as well. She will complete her antibiotics with Augmentin 875mg bid for 5 more days. Probiotic during this time is recommended. 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 She is also advised to continue using stool softener and/or laxative to keep from being constipated by the narcotics. Time spent on discharge: 45 minutes. Condition: Improved - Instructions Diet, Activity, Other Instructions: Postoperative instructions: You had a laparoscopic appendectomy with findings of likely perforation on 11/01/[address] Jose Raul Frank of [facility]. Activity: Resume your usual activities gradually, but no heavy exertion or lifting more than 10-15 pounds for 1 month. Remove dressings 48 hours after surgery; sticky tapes underneath will fall off by themselves. You may shower daily starting then, just pat the incision areas dry. No bath or swimming until skin incisions have healed. Eat lightly at first, but advance to your usual diet as tolerated. Pain: For pain, you may use and alternate Tylenol (acetaminophen) 1-2 pills and/ or ibuprofen 200 mg (1-3 pills) every 6 hours each as needed; this means that you can take one OR the other at 3-hour intervals. If your pain is still severe , you may use Percocet (oxycodone/acetaminophen) as prescribed INSTEAD of one of the Tylenol pills; switch back to regular Tylenol as your pain decreases. Decrease the number and frequency of pills you take as your pain starts decreasing. Do not take more than 4000mg of acetaminophen in a day. Take all medications as prescribed or indicated on the labeling. Narcotic prescriptions will NOT be refilled by your surgeon after discharge from the hospital. You should take a stool softener every day while you are using the oxycodone/ narcotic medication. Keep your stool soft and moving. Prunes, prune juice or a laxative are ok to use as well, if needed. You will need to complete taking all of your antibiotics as prescribed: Augmentin 875mg twice daily for 5 days. Eat yogurt daily and/or use a probiotic while taking the antibiotics and for several days afterward. Follow-up: Call Dr. Frank's office at [phone] to make your postop appointment (Friday in approximately 3 weeks after surgery). Clinic is held in the [facility] on the first floor of [facility]. Call the office if you have: * increasing pain not responsive to pain medication * fever of 101F or higher * vomiting * unusual or increasing bleeding or drainage from wounds * increasing redness or swelling at wound sites Also, see your primary medical doctor and pain management doctor within 1-2 weeks. Follow up with Dr. Cadet, neurologist, within 1-2 weeks as well. Referrals: Brown Cadet DO [Staff Physician] - Jose Raul Frank MD [Staff Physician] - Heriberto Cottrell [Non Staff, Medical] - Disposition: HOME - Home Medications Comprehensive Discharge Medication List: Ambulatory Orders Acetaminophen [Tylenol .Regular Strength -] 650 mg PO Q6HPO tablet 11/04/19 Amox-Tr/K Cl [Augmentin 875-125mg Tablet -] 1 tab PO BID #10 tablet 11/04/19 Docusate Sodium [Colace -] 300 mg PO HS capsule 11/04/19 Ibuprofen [Motrin -] 600 mg PO Q6H tablet 11/04/19 Oxycodone HCl/Acetaminophen [Percocet 10-325 mg Tablet] 1 each PO Q6H PRN #32 tablet MDD 4 11/04/19 Prescription Drug Monitoring Program (I-STOP) results: I-STOP reviewed and no issues identified (report #[id number])
[2019-11-04] MEDS ORDERED: AMOX TR/POT CLAV 875MG/125MG TABLETS (FP) PO SCH (17:30)
--- NOTE | 2019-11-06 15:41 | OP ---
DATE OF OPERATION: 11/01/2019 PREOPERATIVE DIAGNOSIS: Acute appendicitis with generalized peritonitis. POSTOPERATIVE DIAGNOSIS: Acute perforated appendicitis with generalized peritonitis. PROCEDURE: Laparoscopic appendectomy. SURGEON: Jose Raul Frank MD ANESTHESIA: General endotracheal and local, 20 mL of 0.5% Marcaine. ESTIMATED BLOOD LOSS: 10 mL. FLUIDS: Crystalloid 1400 mL. URINE OUTPUT: 400 mL. SPECIMEN: Appendix to Pathology. FINDINGS: Purulent fluid in the pelvis and right lower quadrant was suctioned. An inflamed retrocecal appendix with necrotic/perforated spot at the base was identified, and 2 appendicoliths were retrieved. DISPOSITION: Stable and extubated to PACU. INDICATIONS FOR PROCEDURE: The patient is a 43-year-old female with a history of multiple sclerosis, not currently on routine home medications, with a history of a section and terminations, who presented to the emergency room with right lower quadrant pain beginning the night before, turning severe, which woke her at 2 a.m., radiating toward the umbilicus, associated with nausea, vomiting, diarrhea, and subjective fever. In the emergency room, she was afebrile with a white count of 3.2, left shifted, and a CT scan showed acute appendicitis with some free fluid, but no discrete abscess. She was started on IV antibiotics and fluids. Exam was consistent with right lower quadrant tenderness with additional pain in the right upper quadrant, less in the left, but referred to the lower abdomen and right lower quadrant, and positive rebound tenderness on the right side with some guarding. Risks, benefits, and alternatives of laparoscopic, possible open appendectomy were discussed with the patient including, but not limited to bleeding, infection, injury to adjacent structures, intestinal leak or injury, intraabdominal abscess, incisional hernia, need for further procedures, and alternatives inclusive of antibiotics with delayed or no surgery and attendant risks of failure of nonoperative therapy, perforation, sepsis, recurrence, and . Patient desired to proceed with the operation, signed informed consent for the same, and is now brought to the OR for this procedure. OPERATIVE TECHNIQUE: Patient was brought to the operating room and laid supine on the operating table. Sequential compression devices were applied to bilateral lower extremities, and an additional gram of cefoxitin was given in the operating room , as her previous antibiotics had been given 2-3 hours prior. After induction and intubation by Anesthesia, a Be catheter was placed in the patient's bladder, which was removed at the end of the case, and her lower abdomen was prepped and draped in sterile fashion. A small infraumbilical midline incision was made with a scalpel and carried into subcutaneous tissues with electrocautery, until the abdominal wall fascia was identified, scored, and elevated with Brook clamps. The peritoneum was entered bluntly with the tip of a clamp, and a fingertip inserted to ensure entry into the abdominal cavity and the absence of any underlying adhesions. A stay suture of 0 Vicryl in [id number] fashion was then placed in the fascia for later closure, and the Yolanda trocar introduced directly into the abdominal cavity, which was secured with the balloon. The abdomen was insufflated with carbon dioxide. The patient was placed in Trendelenburg position with the right side planed slightly upward, and purulent fluid was evident in the patient's pelvis. Two additional 5-mm ports were placed under direct vision in the suprapubic and left lower quadrant areas, and the camera was switched to the left lower quadrant port. The suction metal bumper was used to suction up all visible fluid from the pelvis, and attention was turned to the right lower quadrant, where there was a small amount of additional fluid, which was also suctioned. Two graspers were introduced, and the small bowel manipulated medially away from the right lower quadrant. The cecum was identified and rolled somewhat medially to reveal the inflamed appendix in a retrocecal position. A portion of the appendix was grasped in the left hand, and a [place] dissector used to create a window at the base of the appendix where it joined the cecum, where it became apparent that there was, in fact, a small, necrotic, probably perforated spot right at the base of the appendix, where the appendicoliths had been on the CT scan. This window was created carefully, such that a 45 purple load of the Endo RAAD stapler could be introduced and used to transect the appendix at its base proximal to the apparent perforation, that is, up against the cecal wall. Once this had been accomplished, the appendix was re-grasped and held up, such that the mesoappendix could be transected with a 45 white load of the Endo RAAD stapler. Staple lines were inspected for hemostasis, and there was no active bleeding noted. The suction metal bumper was again used to suction any free fluid and blood from the operative site, in the process of which, two small appendicoliths were suctioned up into the device. The operative field was inspected for hemostasis. The pelvis was re-inspected for any free fluid. Irrigation was not undertaken. The appendix was then placed in an EndoCatch bag and drawn up into the Yolanda trocar. The suprapubic port was removed under direct vision. The Yolanda trocar and appendix in bag were also removed under direct vision, and the left lower quadrant port and camera withdrawn as well. The abdomen was exsufflated of carbon dioxide. The specimen was passed off to be sent to Pathology, and the stay suture at the umbilicus was tied to close the fascia there. Hemostasis was achieved in the port sites with electrocautery where necessary. Local anesthetic was then infiltrated into all 3 port sites. Skin was closed with 4-0 Vicryl subcuticular sutures, including a running at the umbilicus. Benzoin and Steri-Strips were applied over each incision, and gauze and Tegaderm placed as dressings over these. Counts were correct at the end of the procedure. The Be catheter was then removed from the patient's bladder. She was then awakened and extubated by Anesthesia, moved back to a stretcher and taken to the recovery room in stable condition, having tolerated the procedure well. JoseR aul Frank M.D. [id number] MTDD
== END 2019-11-04 14:56 | disposition home or self-care (01) | DRG 225 ==
LOC: JER 05:04 → JASUSAT 13:22 → J7W 20:29 → JASUSAT 20:30 → J7W 20:30
PROVIDERS: ADMIT Surgery; ATTEND Surgery
PROC: 0DTJ4ZZ Resection of Appendix, Percutaneous Endoscopic Approach (ICD-10-PCS; principal; 2019-11-01 16:30)
DX: K35.20 Acute appendicitis with generalized peritonitis, without abscess (principal); G35 Multiple sclerosis; M54.5 Low back pain; F41.9 Anxiety disorder, unspecified; R11.2 Nausea with vomiting, unspecified; R10.31 Right lower quadrant pain
CPT/HCPCS: 36415; 74019-TC-FY; 74177-TC; 80048; 80053; 81003; 83605; 83690; 83735; 84703; 85025; 85610; 86850; 86900; 86901; 87086; 87186; 88304-TC; 94010; 94760; 99285-25; J0131; Q0162; Q9967

== ENCOUNTER 2022-03-29 03:17 | Emergency (ER) | payer OTHER ==
[2022-03-29] MEDS ORDERED: ACETAMINOPHEN 1000 MG/100 ML BAG IVPB ONE (04:41)
[2022-03-29 05:00] VITALS: TEMP 98.8; BMI 19.5
[2022-03-29 05:41] LABS: BASO % 1.8 % (0-2.0); EOS % 0.9 % (0-4.5); HEMATOCRIT 36.2 % (32.4-45.2); HEMOGLOBIN 11.8 GM/dL (10.7-15.3); MCHC 32.7 g/dl (32.0-36.0); MEAN PLT VOLUME 8.4 fl (7.5-11.1); MONO % 11.3 % (3.8-10.2); PLATELET COUNT 269 10^3/uL (134-434); RBC 3.81 M/mm3 (3.60-5.2); RDW 18.4 % (11.6-15.6); WHITE BLOOD COUNT 2.7 K/mm3 (4.0-10.0)
[2022-03-29 06:01] LABS: ALBUMIN 4.1 g/dl (3.4-5.0); CALCIUM 8.8 mg/dL (8.5-10.1)
[2022-03-29 06:06] LABS: BILIRUBIN,TOTAL 0.2 mg/dL (0.2-1); TOT PROT 7.6 g/dl (6.4-8.2)
[2022-03-29 06:41] LABS: EPI CELLS 12 /uL (0-25.1); HYALINE CASTS 0 /uL (0-3.1); URINE APPEARANCE CLOUDY; URINE BACTERIA >9,000 /uL (0-1359); URINE BILIRUBIN NEGATIVE (NEGATIVE); URINE COLOR YELLOW; URINE GLUCOSE (UA) NEGATIVE (NEGATIVE); URINE KETONE NEGATIVE (NEGATIVE); URINE LEUK ESTERASE NEGATIVE (NEGATIVE); URINE NITRITE POSITIVE (NEGATIVE); URINE PROTEIN NEGATIVE (NEGATIVE); URINE RBC 22 /uL (0-23.9); URINE UROBILINOGEN 0.2 mg/dL (0.2-1.0); URINE WBC 4 /uL (0-25.8)
[2022-03-29 06:50] LABS: CREATININE 0.5 mg/dL (0.55-1.3)
[2022-03-29] MEDS ORDERED: CEFTRIAXONE 1 GM in DEXTROSE 5%-WATER - 100 ML IVPB ONE (07:28)
[2022-03-29] MEDS ORDERED: cefTRIAXone SODIUM 1 GM VIAL ONE (09:04)
[2022-03-29 11:04] VITALS: BP 168/90; PULSE 92
== END 2022-03-29 11:04 | disposition home or self-care (01) ==
LOC: MERGE 03:17 → JER 03:17
PROC: 3E033GC Introduction of Other Therapeutic Substance into Peripheral Vein, Percutaneous Approach (ICD-10-PCS; principal; 2022-03-29)
DX: N39.0 Urinary tract infection, site not specified (principal)
CPT/HCPCS: 36415; 74176-TC; 76705-TC; 80053; 81003; 83690; 84703; 85025; 87086; 87186; 99285-25

== ENCOUNTER 2023-11-08 07:46 | Inpatient (IN) | payer OTHER ==
[2023-11-08] MEDS ORDERED: diazePAM CARPU-JECT 10 MG/2 ML DISP.SYRIN ONE ×2 (09:23→12:02)
[2023-11-08] MEDS: diazePAM CARPU-JECT 10 MG/2 ML DISP.SYRIN IVPUSH ONE ×4 (09:40→12:20)
[2023-11-08 09:58] LABS: INR 1.1 (0.83-1.09); PROTHROMBIN TIME (PATIENT) 12.8 SEC (9.7-13.0)
[2023-11-08 10:00] LABS: ACTIVATED PTT 29.7 SECONDS (25.2-36.5)
[2023-11-08 10:01] LABS: BASO % 0.8 % (0-2.0); EOS % 0.1 % (0-4.5); HEMATOCRIT 33.9 % (32.4-45.2); HEMOGLOBIN 10.5 GM/dL (10.7-15.3); LYMPH % 9.8 % (8-40); MCH 26.1 pg (25.7-33.7); MCHC 31.1 g/dl (32.0-36.0); MEAN PLT VOLUME 8.3 fl (7.5-11.1); MONO % 6.6 % (3.8-10.2); NEUT % 82.7 % (42.8-82.8); PLATELET COUNT 161 10^3/uL (134-434); RBC 4.03 M/mm3 (3.60-5.2); WHITE BLOOD COUNT 4.8 K/mm3 (4.0-10.0)
[2023-11-08 10:19] LABS: POTASSIUM 4.3 mmol/L (3.5-5.1)
[2023-11-08 10:21] LABS: ALBUMIN 3.8 g/dl (3.4-5.0); CALCIUM 8.9 mg/dL (8.5-10.1); MAGNESIUM 1.7 mg/dL (1.8-2.4)
[2023-11-08 10:22] LABS: BLOOD UREA NITROGEN 6.9 mg/dL (7-18)
[2023-11-08 10:24] LABS: PHOSPHOROUS 3.1 mg/dL (2.5-4.9)
[2023-11-08 10:25] LABS: CREATININE 0.4 mg/dL (0.55-1.3)
[2023-11-08 10:26] LABS: BILIRUBIN,TOTAL 0.8 mg/dL (0.2-1); TOT PROT 7.9 g/dl (6.4-8.2)
[2023-11-08 10:51] LABS: ANISOCYTOSIS 1+; MACROCYTOSIS 0; OVALOCYTE 1+
[2023-11-08] MEDS ORDERED: MAGNESIUM SULFATE IN WATER 2 GM/50 ML IVPB IVPB ONE (12:02)
[2023-11-08] MEDS: MAGNESIUM SULF 50% (8.12 MEQ/2 ML-1 GM VIAL) IVPB ONE (12:20)
[2023-11-08 14:52] VITALS: RESP 18
[2023-11-08] MEDS ORDERED: ONDANSETRON 4 MG/2 ML VIAL IVPUSH PRN (16:19)
[2023-11-08 16:50] VITALS: BMI 19.4
[2023-11-08] MEDS: LORazepam 1 MG TABLET PO SCH (17:40)
[2023-11-08] MEDS: FOLIC ACID 1 MG TABLET (FP) PO SCH (17:40)
[2023-11-08] MEDS: DEXTROSE 5%-0.45% SALINE 1,000 ML IV SCH (17:43)
[2023-11-08] MEDS: THIAMINE HCL 200 MG/2 ML VIAL IVPB SCH (17:44)
[2023-11-09 05:30] VITALS: BP 103/72; PULSE 91; TEMP 98.6
[2023-11-09 08:19] LABS: BASO % 0.9 % (0-2.0); EOS % 1.4 % (0-4.5); HEMATOCRIT 33.3 % (32.4-45.2); HEMOGLOBIN 10.6 GM/dL (10.7-15.3); LYMPH % 25.2 % (8-40); MCH 26.7 pg (25.7-33.7); MEAN CELL VOLUME 83.5 fl (80-96); MEAN PLT VOLUME 9.1 fl (7.5-11.1); MONO % 11.6 % (3.8-10.2); NEUT % 60.9 % (42.8-82.8); PLATELET COUNT 148 10^3/uL (134-434); RBC 3.99 M/mm3 (3.60-5.2); RDW 24.9 % (11.6-15.6); WHITE BLOOD COUNT 2.6 K/mm3 (4.0-10.0)
[2023-11-09 08:28] LABS: POTASSIUM 3.7 mmol/L (3.5-5.1)
[2023-11-09 08:35] LABS: ALBUMIN 3.1 g/dl (3.4-5.0); BLOOD UREA NITROGEN 6.2 mg/dL (7-18); CALCIUM 8.4 mg/dL (8.5-10.1)
[2023-11-09 08:39] LABS: CREATININE 0.4 mg/dL (0.55-1.3)
[2023-11-09 08:40] LABS: BILIRUBIN,TOTAL 0.7 mg/dL (0.2-1); TOT PROT 6.4 g/dl (6.4-8.2)
[2023-11-09] MEDS ORDERED: ENOXAPARIN NA (PORCINE) 40 MG/0.4 ML DISP.SYRIN SQ SCH (10:00)
== END 2023-11-09 08:40 | disposition left against medical advice (07) | DRG 770 ==
LOC: JER 07:46 → JERBED 09:11 → J4W 15:01
PROVIDERS: ADMIT Internal Medicine; ATTEND Internal Medicine
PROC: HZ2ZZZZ Detoxification Services for Substance Abuse Treatment (ICD-10-PCS; principal; 2023-11-08)
DX: F10.239 Alcohol dependence with withdrawal, unspecified (principal); G35 Multiple sclerosis; R00.0 Tachycardia, unspecified; F17.210 Nicotine dependence, cigarettes, uncomplicated; M54.50 Low back pain, unspecified; F41.9 Anxiety disorder, unspecified
CPT/HCPCS: 0241U-QW; 36415; 71045-TC-FY; 80053; 80307; 83735; 84100; 84703; 85025; 85610; 85730; 93005; 93010; 99285-25

== ENCOUNTER 2024-05-21 20:04 | Observation (INO) | payer OTHER ==
[2024-05-21 20:35] VITALS: BMI 19.5
[2024-05-21] MEDS ORDERED: diazePAM CARPU-JECT 10 MG/2 ML DISP.SYRIN ONE (21:23)
[2024-05-21] MEDS ORDERED: ACETAMINOPHEN INJECTION 100 ML IVPB ONE (21:23)
[2024-05-21] MEDS: ACETAMINOPHEN 1000 MG/100 ML BAG IVPB ONE (21:36)
[2024-05-21] MEDS: SODIUM CHLORIDE 1,000 ML IV STA (21:36)
[2024-05-21] MEDS: diazePAM CARPU-JECT 10 MG/2 ML DISP.SYRIN IVPUSH ONE (21:38)
[2024-05-21 21:41] LABS: BASO % 0.2 % (0-2.0); EOS % 0.1 % (0-4.5); HEMATOCRIT 34.2 % (32.4-45.2); HEMOGLOBIN 11.6 GM/dL (10.7-15.3); MCH 35.3 pg (25.7-33.7); MCHC 33.8 g/dl (32.0-36.0); MEAN CELL VOLUME 104.4 fl (80-96); MEAN PLT VOLUME 7.6 fl (7.5-11.1); MONO % 8.4 % (3.8-10.2); NEUT % 87.3 % (42.8-82.8); PLATELET COUNT 94 10^3/uL (134-434); RBC 3.28 M/mm3 (3.60-5.2); RDW 12.8 % (11.6-15.6); WHITE BLOOD COUNT 5.2 K/mm3 (4.0-10.0)
[2024-05-21 21:45] LABS: ADD RBC MORPHOLOGY YES
[2024-05-21 21:59] LABS: POTASSIUM 3.7 mmol/L (3.5-5.1)
[2024-05-21 22:01] LABS: ALBUMIN 3.8 g/dl (3.4-5.0); CALCIUM 8.4 mg/dL (8.5-10.1)
[2024-05-21 22:02] LABS: BLOOD UREA NITROGEN 5.8 mg/dL (7-18); MAGNESIUM 1.5 mg/dL (1.8-2.4)
[2024-05-21 22:05] LABS: CREATININE 0.3 mg/dL (0.55-1.3); PHOSPHOROUS 2.7 mg/dL (2.5-4.9)
[2024-05-21 22:06] LABS: BILIRUBIN,TOTAL 1.6 mg/dL (0.2-1); TOT PROT 6.8 g/dl (6.4-8.2)
[2024-05-21 22:24] LABS: ANISOCYTOSIS 1+; MACROCYTOSIS 1+
[2024-05-22] MEDS ORDERED: LIDOCAINE 4% PATCH TP ONE (03:26)
[2024-05-22] MEDS: LIDOCAINE 5% TOPICAL PATCH TP ONE (03:33)
[2024-05-22] MEDS ORDERED: ACETAMINOPHEN 325 MG TABLET (FP) ONE (06:36)
[2024-05-22] MEDS: ACETAMINOPHEN 325 MG TABLET (FP) PO ONE (06:43)
[2024-05-22 07:02] VITALS: BP 147/80; PULSE 104; RESP 16; TEMP 98.7
[2024-05-22] MEDS ORDERED: MAGNESIUM 2GM/50ML STERILE WATER IVPB IVPB ONE (07:21)
[2024-05-22] MEDS ORDERED: diazePAM 5 MG TABLET PO PRN (07:28)
[2024-05-22] MEDS ORDERED: DEXTROSE 5%-0.45% SALINE 1,000 ML IV SCH (07:30)
[2024-05-22] MEDS ORDERED: THIAMINE 100 MG TABLET PO SCH (10:00)
[2024-05-22] MEDS ORDERED: MULTIVITAMINS (DAILY MVI) TABLET (FP) PO SCH (10:00)
[2024-05-22] MEDS ORDERED: LIDOCAINE PATCH REMOVAL MC ONE (15:00)
== END 2024-05-22 08:40 | disposition home or self-care (01) ==
LOC: JER 20:04 → JERBED 05-22 06:22
PROVIDERS: ADMIT Internal Medicine; ATTEND Internal Medicine
PROC: 3E033NZ Introduction of Analgesics, Hypnotics, Sedatives into Peripheral Vein, Percutaneous Approach (ICD-10-PCS; principal; 2024-05-22)
PROC: 3E0337Z Introduction of Electrolytic and Water Balance Substance into Peripheral Vein, Percutaneous Approach (ICD-10-PCS; 2024-05-22)
DX: R56.9 Unspecified convulsions (principal); G35 Multiple sclerosis; F10.99 Alcohol use, unspecified with unspecified alcohol-induced disorder; R94.5 Abnormal results of liver function studies; Z87.891 Personal history of nicotine dependence
CPT/HCPCS: 0241U-QW; 36415; 70450-TC; 80053; 83735; 84100; 84703; 85025; 93005; 93010; 96361; 96374; 96375; 99285-25; G0378; J0131